=== PATIENT | female | born 1965 ===

== ENCOUNTER 2022-06-05 06:05 | Day surgery (SDC) | payer OTHER ==
[~2022-06-05] VITALS: Ht 152.4 cm; Wt 65.8 kg
[~2022-06-05 06:05] MED LIST: HYDROCHLOROTH12.5 MG; NORVASC5 MG; TOPROL XL100 M1; VALSARTAN320 MG
== END 2022-06-05 17:05 | disposition home or self-care (01) ==
LOC: CIR.AMB 06:05
PROVIDERS: ATTEND Orthopaedic Surgery Hand Surgery
DX: M19.041 Primary osteoarthritis, right hand (principal); Z91.013 Allergy to seafood; Z20.822 Contact with and (suspected) exposure to COVID-19; I10 Essential (primary) hypertension; Z88.8 Allergy status to other drugs, medicaments and biological substances